=== PATIENT | female | born 1980 | race Caucasian/White ===

== ENCOUNTER 2017-10-18 04:21 | Emergency (ER) | payer OTHER ==
[~2017-10-18 04:21] MED LIST: AMOX-355 PO; HORMONE REPLACEMENT; KET10 PO; LEVO100T95 PO; LOR5 PO; ONDA4TAB PO
[2017-10-18] MEDS ORDERED: CITA-155 PO (04:27)
--- NOTE | 2017-10-18 04:42 | ER Report ---
History and Physical Time Seen By MD: 04:40 Hx. of Stated Complaint: PT REPORTS HISTORY OF MIGRAINE HEADACHES. USUALLY CONTROLLED WITH EXCEDRIN. THIS ONE HAS LASTED THREE DAYS AND IS NOT GETTING BETTER. HPI/ROS CHIEF COMPLAINT: headache HISTORY OF PRESENT ILLNESS: This is a 37 year old female. She had a history of headaches, but tonight she is here for a headache that had lasted 3 days. This is very unusual for her. She normally takes Excedrin, and the headaches improve. She is having nausea with this. Photophobia. Pain is throbbing in her whole head, but also pain and tightness into her trapezius and shoulders. No fevers or chills. She has no chest pain or abdominal pain. No diarrhea or constipation. No dysuria or frequency. She did eat dinner last night without vomiting, but was very nauseated. Tonight has vomited when trying to drink fluids. Vision is normal otherwise. Never has had a headache last this long. No history of having a CT scan of her brain in the past. Allergies: Coded Allergies: acetaminophen (Verified Allergy, Mild, HIVES, 10/18/17) amoxicillin (Verified Allergy, Mild, HIVES, 10/18/17) oxycodone (Verified Allergy, Mild, HIVES, 10/18/17) Home Meds Active Scripts Promethazine Hcl (PROMETHAZINE HCL) 25 Mg Tablet, 25 MG PO Q8H Y for NAUSEA/ VOMITING, #20 TAB 0 Refills Prov:STEPHEN PENA MD 10/18/17 Cyclobenzaprine Hcl (CYCLOBENZAPRINE HCL) 10 Mg Tablet, 10 MG PO Q8H Y for MUSCLE SPASMS, #20 TAB 0 Refills Prov:STEPHEN PENA MD 10/18/17 Ketorolac Tromethamine (KETOROLAC TROMETHAMINE) 10 Mg Tab, 10 MG PO Q6H Y for PAIN, #12 TAB 0 Refills Prov:STEPHEN PENA MD 10/18/17 Reported Medications Citalopram Hydrobromide (CELEXA) 10 Mg Tablet, 10 MG PO QDAY, #5 TAB 10/18/17 Levothyroxine Sodium (Synthroid) 100 Mcg Tablet, 112 MCG PO QDAY, 0 Refills 03/31/10 Discontinued Reported Medications [Hormone Replacement] No Conflict Check, 0 Refills 03/31/10 Discontinued Scripts Ondansetron (ZOFRAN ODT) 4 Mg Tab.rapdis, 4 MG PO Q6H Y for NAUSEA/VOMITING, # 20 TAB.SL Prov:HOLLIS PRYOR [facility] 03/10/15 Ketorolac Tromethamine (KETOROLAC TROMETHAMINE) 10 Mg Tab, 10 MG PO Q6H, #20 TAB Prov:HOLLIS PRYOR [facility] 03/10/15 Reviewed Nurses Notes: Yes Hx Smoking: Yes Smoking Status: Current: Every Day Smoker Exposure to Second Hand Smoke?: Yes Hx Substance Use Disorder: No Hx Alcohol Use: No Constitutional Vital Sign - Last 24 Hours 10/18/17 10/18/17 10/18/17 10/18/17 04:28 04:30 04:45 04:50 Pulse 59 61 70 62 Resp 14 B/P (MAP) 121/85 Pulse Ox 94 94 94 93 O2 Delivery Room Air 10/18/17 10/18/17 10/18/17 10/18/17 05:04 05:05 05:13 05:20 Pulse 52 47 41 Resp 15 B/P (MAP) 115/82 (93) 115/82 (93) Pulse Ox 93 92 92 O2 Delivery Room Air 10/18/17 10/18/17 10/18/17 10/18/17 05:36 05:50 06:00 06:05 Pulse 48 63 B/P (MAP) 115/82 (93) 114/67 (83) Pulse Ox 94 94 10/18/17 10/18/17 10/18/17 10/18/17 06:30 06:35 06:50 06:55 Pulse 52 53 51 B/P (MAP) 114/86 (95) Pulse Ox 98 99 10/18/17 10/18/17 07:00 07:05 Pulse 56 B/P (MAP) 100/72 (81) Pulse Ox 98 Physical Exam General Appearance: The patient is alert. No acute distress. Eyes: Pupils are equal, round. Reactive to light. No pallor, injection or icterus. Extraocular movements are intact. ENT: Mucous membranes are moist. Normal oral mucosa. Posterior oropharynx is normal. Normal tympanic membranes and canals. Neck: Supple and non tender. No lymphadenopathy. Respiratory: Lungs are clear to auscultation. Cardiovascular: Regular rate and rhythm. No murmurs, gallops or rubs. Normal capillary refill. Gastrointestinal: Abdomen is soft and non tender. Nondistended. Normal active bowel sounds. Neurological: Alert and oriented x3. Cranial nerves II through XII show no acute deficits on my exam. No focal neurologic deficits in the extremities. Skin: Warm and dry. Musculoskeletal: Extremities are nontender. Has pain in the trapeziums and levator scapulae. Pain in the paraspinous muscles and some in the base of the skull. No mastoid pain. No tenderness in palpation of the midline of the cervical, thoracic and lumbar spine. DIFFERENTIAL DIAGNOSIS: After history and physical exam, differential diagnosis was considered for headache including but not limited to subarachnoid hemorrhage , migraine headache, tension headache and infectious causes. Medical Decision Making Data Points Result Diagram: 10/18/17 0437 10/18/17 0437 Laboratory Hematology Test 10/18/17 04:37 Red Blood Count 4.57 M/uL (4.17-5.56) Mean Corpuscular Volume 93.4 fL (80.0-96.0) Mean Corpuscular Hemoglobin 31.9 pg (26.0-33.0) Mean Corpuscular Hemoglobin Concent 34.2 g/dL (32.0-36.0) Red Cell Distribution Width 13.0 % (11.5-14.5) Mean Platelet Volume 7.0 fL (7.2-11.1) Neutrophils (%) (Auto) 36.0 % (39.4-72.5) Lymphocytes (%) (Auto) 48.9 % (17.6-49.6) Monocytes (%) (Auto) 6.7 % (4.1-12.4) Eosinophils (%) (Auto) 7.4 % (0.4-6.7) Basophils (%) (Auto) 1.0 % (0.3-1.4) Nucleated RBC Relative Count (auto) 0.1 /100WBC Neutrophils # (Auto) 2.5 K/uL (2.0-7.4) Lymphocytes # (Auto) 3.4 K/uL (1.3-3.6) Monocytes # (Auto) 0.5 K/uL (0.3-1.0) Eosinophils # (Auto) 0.5 K/uL (0.0-0.5) Basophils # (Auto) 0.1 K/uL (0.0-0.1) Nucleated RBC Absolute Count (auto) 0.00 K/uL Erythrocyte Sedimentation Rate 7 mm/HOUR (0-20) Prothrombin Time 13.0 seconds (12.0-14.4) Prothromb Time International Ratio 0.98 Activated Partial Thromboplast Time 26 seconds (23-35) Sodium Level 141 mmol/L (137-145) Potassium Level 3.7 mmol/L (3.5-5.0) Chloride Level 107 mmol/L (98-107) Carbon Dioxide Level 23 mmol/L (22-31) Blood Urea Nitrogen 22 mg/dl (7-18) Creatinine 0.80 mg/dl (0.52-1.04) Glomerular Filtration Rate Calc > 60.0 Random Glucose 129 mg/dl (75-110) Calcium Level 9.7 mg/dl (8.4-10.2) Total Bilirubin 0.4 mg/dl (0.2-1.3) Aspartate Amino Transf (AST/SGOT) 18 U/L (0-35) Alanine Aminotransferase (ALT/SGPT) 19 U/L (0-56) Alkaline Phosphatase 77 U/L (0-126) C-Reactive Protein < 0.5 mg/dl (<1.0) Total Protein 6.6 gm/dl (6.3-8.2) Albumin 3.9 g/dl (3.5-5.0) Chemistry Test 10/18/17 04:37 White Blood Count 7.0 k/uL (4.5-11.0) Red Blood Count 4.57 M/uL (4.17-5.56) Hemoglobin 14.6 g/dL (12.0-16.0) Hematocrit 42.6 % (34.0-47.0) Mean Corpuscular Volume 93.4 fL (80.0-96.0) Mean Corpuscular Hemoglobin 31.9 pg (26.0-33.0) Mean Corpuscular Hemoglobin Concent 34.2 g/dL (32.0-36.0) Red Cell Distribution Width 13.0 % (11.5-14.5) Platelet Count 246 K/uL (150-450) Mean Platelet Volume 7.0 fL (7.2-11.1) Neutrophils (%) (Auto) 36.0 % (39.4-72.5) Lymphocytes (%) (Auto) 48.9 % (17.6-49.6) Monocytes (%) (Auto) 6.7 % (4.1-12.4) Eosinophils (%) (Auto) 7.4 % (0.4-6.7) Basophils (%) (Auto) 1.0 % (0.3-1.4) Nucleated RBC Relative Count (auto) 0.1 /100WBC Neutrophils # (Auto) 2.5 K/uL (2.0-7.4) Lymphocytes # (Auto) 3.4 K/uL (1.3-3.6) Monocytes # (Auto) 0.5 K/uL (0.3-1.0) Eosinophils # (Auto) 0.5 K/uL (0.0-0.5) Basophils # (Auto) 0.1 K/uL (0.0-0.1) Nucleated RBC Absolute Count (auto) 0.00 K/uL Erythrocyte Sedimentation Rate 7 mm/HOUR (0-20) Prothrombin Time 13.0 seconds (12.0-14.4) Prothromb Time International Ratio 0.98 Activated Partial Thromboplast Time 26 seconds (23-35) Glomerular Filtration Rate Calc > 60.0 Calcium Level 9.7 mg/dl (8.4-10.2) Total Bilirubin 0.4 mg/dl (0.2-1.3) Aspartate Amino Transf (AST/SGOT) 18 U/L (0-35) Alanine Aminotransferase (ALT/SGPT) 19 U/L (0-56) Alkaline Phosphatase 77 U/L (0-126) C-Reactive Protein < 0.5 mg/dl (<1.0) Total Protein 6.6 gm/dl (6.3-8.2) Albumin 3.9 g/dl (3.5-5.0) Coagulation Test 10/18/17 04:37 Prothrombin Time 13.0 seconds Prothromb Time International Ratio 0.98 Activated Partial Thromboplast Time 26 seconds EKG/Imaging Imaging HEAD CT: Indication: Persistent headache. Technique: Contiguous axial sections were obtained from the base to the vertex without contrast enhancement. One of the following dose optimization techniques was utilized in the performance of this exam: Automated exposure control; adjustment of the mA and/ or kV according to the patient's size; or use of an iterative reconstruction technique. Specific details can be referenced in the facility's radiology CT exam operational policy. Comparison: None. Findings: There is no evidence of intra-axial or extra-axial hemorrhage. No focal areas of decreased or increased attenuation are identified. There is no evidence of mass, edema, or shift of the midline structures. The size, shape, and configuration of the ventricular system are normal. The skeletal structures are intact and unremarkable. The visualized paranasal sinuses and mastoid air cells are clear. Impression: Unremarkable unenhanced head CT. Report Dictated By: Moustapha Gold MD at 10/18/2017 5:44 AM ED Course/Re-evaluation Clinical Indication for ER IV: Hydration, IV Access ED Course Patient had and IV started and was given 1000cc of normal saline. Phenergan 12.5mg IV, Benadryl 25mg IV and Norflex 30mg IV were given. CT scan of the head was negative. Labs normal other than elevated BUN/Cr ratio suggesting some dehydration. She was feeling much better. A second liter of normal saline was given and the patient was discharged home. Decision to Disposition Date: October 18, 2017 Decision to Disposition Time: 06:15 Depart Departure Latest Vital Signs Vital Signs Date Time Temp Pulse Resp B/P (MAP) Pulse Ox O2 Delivery O2 Flow Rate FiO2 10/18/17 07:05 56 98 10/18/17 07:00 100/72 (81) 10/18/17 05:13 15 Room Air Impression: Primary Impression: Migraine Condition: Improved Disposition: HOME OR SELF-CARE New Scripts Promethazine Hcl (PROMETHAZINE HCL) 25 Mg Tablet 25 MG PO Q8H Y for NAUSEA/VOMITING, #20 TAB 0 Refills Prov: STEPHEN PENA MD 10/18/17 Cyclobenzaprine Hcl (CYCLOBENZAPRINE HCL) 10 Mg Tablet 10 MG PO Q8H Y for MUSCLE SPASMS, #20 TAB 0 Refills Prov: STEPHEN PENA MD 10/18/17 Ketorolac Tromethamine (KETOROLAC TROMETHAMINE) 10 Mg Tab 10 MG PO Q6H Y for PAIN, #12 TAB 0 Refills Prov: STEPHEN PENA MD 10/18/17 Patient Instructions: Migraine Headache (ED) Additional Instructions: Rest and increase fluid intake over the next 24 hours. You can take Toradol 10mg, one every 6 hours as needed for headache. You can take Phenergan 25mg, one every 8 hours as needed for headache and nausea. For muscle spasm in the neck and shoulders associated with headache you can take the muscle relaxer Flexeril 10mg, one every 8 hours as needed. Problem Qualifiers Primary Impression: Migraine Migraine type: unspecified Status migrainosus presence: without status migrainosus Intractability: not intractable Qualified Codes: G43.909 - Migraine, unspecified, not intractable, without status migrainosus STEPHEN PENA MD October 18, 2017 04:42
[2017-10-18] MEDS ORDERED: NS(*) 0.9% 1000 ML BAG 1,000 ML IV ONE ×2 (04:50→06:15)
[2017-10-18] MEDS ORDERED: PROMETHAZINE 25 MG/ML 1 ML AMP IVP ONE (04:50)
[2017-10-18] MEDS ORDERED: ORPHENADRINE 60MG/2ML INJ IVP ONE (04:50)
[2017-10-18] MEDS ORDERED: diphenhydrAMINE 50 MG/ML VIAL IVP ONE (04:50)
[2017-10-18 05:03] LABS: PLATELET COUNT, AUTOMATED 246 K/uL (150-450)
[2017-10-18 05:08] LABS: INR 0.98
--- NOTE | 2017-10-18 05:52 | RADIOLOGY IMAGING REPORT ---
FACILITY: [facility] PATIENT NAME: Freda Sethi : 1980 MR: [id number] V: [id number] EXAM DATE: ORDERING PHYSICIAN: STEPHEN PENA TECHNOLOGIST: Location: [facility] [place] Patient: Freda Sethi : 1980 Visit/Account:[id number] Date of Sevice: 10/18/[address]: Indication: Persistent headache. Technique: Contiguous axial sections were obtained from the base to the vertex without contrast enhan cement. One of the following dose optimization techniques was utilized in the performance of this exam: Autom ated exposure control; adjustment of the mA and/or kV according to the patient's size; or use of an i terative reconstruction technique. Specific details can be referenced in the facility's radiology CT exam operational policy. Comparison: None. Findings: There is no evidence of intra-axial or extra-axial hemorrhage. No focal areas of decreased or increased attenuation are identified. There is no evidence of mass, edema, or shift of the midline structures. The size, shape, and configuration of the ventricular system are normal. The skeletal st ructures are intact and unremarkable. The visualized paranasal sinuses and mastoid air cells are luis enrique r. Impression: Unremarkable unenhanced head CT. Report Dictated By: Moustapha Gold MD at 10/18/2017 5:44 AM Report E-Signed By: Moustapha Gold MD at 10/18/2017 5:47 AM [id number]
[2017-10-18] MEDS ORDERED: PROM-110 PO (06:20)
[2017-10-18] MEDS ORDERED: KET10 PO (06:20)
[2017-10-18] MEDS ORDERED: CYCL10TA29 PO (06:20)
[2017-10-18 07:00] VITALS: BP 100/72
== END 2017-10-18 07:07 | disposition home or self-care (01) ==
LOC: ER 04:51
DX: G43.909 Migraine, unspecified, not intractable, without status migrainosus (principal); F17.210 Nicotine dependence, cigarettes, uncomplicated
CPT/HCPCS: 70450; 85025; 85610; 85651; 85730; 86140; 96361; 96374; 96375; 99284; J1200; J2360; J2550; J7030; 82040; 82247; 82310; 82374; 82435; 82565; 82947; 84075; 84132; 84155; 84295; 84450; 84460; 84520